=== PATIENT | female | born 2000 | race African-American/Black ===

== ENCOUNTER 2018-04-04 12:50 | Emergency (ER) | payer OTHER ==
[~2018-04-04] VITALS: Ht 167.6 cm; Wt 59.9 kg
[2018-04-04] MEDS ORDERED: NORCO 5-325 TA1 EACH PO (13:35)
[2018-04-04] MEDS ORDERED: NAPROSYN500 MG PO (13:35)
[2018-04-04] MEDS ORDERED: SSD CREAM 1% 5050 GM TOP (13:35)
[2018-04-04 14:21] VITALS: BP 125/77
== END 2018-04-04 14:21 | disposition home or self-care (01) ==
LOC: M.ERS 12:50
DX: T24.211A Burn of second degree of right thigh, initial encounter (principal); X11.8XXA Contact with other hot tap-water, initial encounter; Y93.G3 Activity, cooking and baking; Y92.89 Other specified places as the place of occurrence of the external cause; Y99.8 Other external cause status

== ENCOUNTER 2018-04-08 17:24 | Emergency (ER) | payer OTHER ==
[~2018-04-08] VITALS: Ht 167.6 cm; Wt 63.5 kg
[~2018-04-08 17:24] MED LIST: NAPROSYN500 MG PO; NORCO 5-325 TA1 EACH PO; SSD CREAM 1% 5050 GM TOP
== END 2018-04-08 18:01 | disposition home or self-care (01) ==
LOC: M.ERS 17:24
DX: T24.211D Burn of second degree of right thigh, subsequent encounter (principal); T31.0 Burns involving less than 10% of body surface

== ENCOUNTER 2020-11-02 11:24 | Emergency (ER) | payer OTHER ==
[~2020-11-02] VITALS: Ht 167.6 cm; Wt 81.2 kg
[2020-11-02 12:09] VITALS: BP 100/63
--- NOTE | 2020-11-02 16:33 | EKG ---
[place] [address] ELECTROCARDIOGRAM REPORT Name: LACI EVANSJAMILA Room: [facility]#: [id number] Admission: 11/02/20 Attend Phys: Discharge: 11/02/20 Date of : 89 Date of Service: 11/02/20 1150 Report #: [id number] THIS REPORT FOR: //name// [facility] ED Test Date: 2020-11-02 Test Time: 11:50:50 Pat Name: KALI EVANS Department: Room: Gender: Hypo Dipper: ALICIA : 2000 Requested By: Silvio Carlton Order Number: [id number] MD: Berhane Lisa Measurements Intervals [place] Rate: 70 P: 30 NE: 144 QRS: 27 QRSD: 81 T: 26 QT: 414 QTc: 447 Interpretive Statements Sinus rhythm No previous ECG available for comparison Electronically Signed On 11-02-2020 16:33:47 CDT by Berhane Lisa [email or web address] <ELECTRONICALLY SIGNED> By: Berhane Lisa MD, [facility] 11/02/20 1633 1150 1150 Berhane Lisa MD, FACC /EPI
== END 2020-11-02 12:11 | disposition left against medical advice (07) ==
LOC: M.ERS 11:24
DX: R55 Syncope and collapse (principal)